=== PATIENT | female | born 1995 | race Caucasian/White ===

== ENCOUNTER 2018-08-05 09:23 | Emergency (ER) | payer MEDICAID ==
[~2018-08-05] VITALS: Ht 154.9 cm; Wt 79.0 kg
[2018-08-05 09:27] VITALS: BP 139/95
--- NOTE | 2018-08-05 09:33 | NUR ---
PT AMB TO RESTROOM FOR URINE SAMPLE
--- NOTE | 2018-08-05 09:35 | NUR ---
PATIENT AMBULATED TO BED 8 AT THIS TIME.
--- NOTE | 2018-08-05 09:36 | NUR ---
22 Y FEMALE BIB SELF C/O ABD PAIN X1 DAY. REPORTS INTERMITENT LOWER ABD CRAMPING PAIN AT 5/10. +N/V WITH 3 EPISODES OF CLEAR YELLOW EMESIS. PT REPORTS CHILLS, CURRENTLY AFEBRILE AT 97.0. PT DENEIS UTI SYMPTOMS. PT REPORTS DIARRHEA THIS MORNING. BOWEL SOUNDS ACTIVE IN ALL FOUR QUADRANTS. ABDOMEN SOFT AND ROUND. VSS AT THIS TIME. PT ALERT AND ORIENTED X 4. BED IS DOWN, LOCKED, BED RAIL X 1, ERMD TO SEE PT. MEDHX:DENIES RX:DENIES
--- NOTE | 2018-08-05 09:37 | NUR ---
DR MARSHALL AT BEDSIDE EVALUATING PT
[2018-08-05] MEDS ORDERED: DICYCLOMINE 20 MG/2 ML VIAL IM ONE (09:40)
--- NOTE | 2018-08-05 09:48 | NUR ---
LAB AT BEDSIDE
[2018-08-05 10:07] LABS: BASOPHILS % (AUTO) 0.7 % (0.0-2.0); EOSINOPHILS % (AUTO) 0.6 % (0.0-4.0); HEMATOCRIT 32.4 % (36-48); HEMOGLOBIN 10.4 g/dL (12.0-16.0); LYMPHOCYTES # (AUTO) 0.9 K/uL (2.5-16.5); LYMPHOCYTES % (AUTO) 15.6 % (20.5-51.1); MEAN CORPUSCULAR HEMOGLOBIN 24 pg (27-31); MEAN CORPUSCULAR HGB CONC 32 g/dL (33-37); MEAN CORPUSCULAR VOLUME 73.5 fL (80-94); MONOCYTES # (AUTO) 0.7 K/uL (0.8-1.0); MONOCYTES % (AUTO) 12.6 % (1.7-9.3); NEUTROPHILS # (AUTO) 4.1 K/uL (1.8-7.7); NEUTROPHILS % (AUTO) 70.5 % (42.2-75.2); PLATELET COUNT (AUTO) 276 K/uL (140-450); RED CELL DISTRIBUTION WIDTH 16.9 % (11.6-13.7); WHITE BLOOD COUNT (AUTO) 5.8 K/uL (4.5-11.0)
--- NOTE | 2018-08-05 10:09 | NUR ---
FAMILY AT BEDSIDE
[2018-08-05 10:14] LABS: APPEARANCE,URINE CLEAR (CLEAR); BILIRUBIN,URINE NEGATIVE (NEGATIVE); BLOOD, URINE 1+ (NEGATIVE); COLOR,URINE YELLOW (YELLOW); LEUKOCYTE ESTERASE ,URINE NEGATIVE (NEGATIVE); NITRITE, URINE NEGATIVE (NEGATIVE); UGLUCOSE NEGATIVE (NEGATIVE)
[2018-08-05 10:45] LABS: WBC,URINE 0-5 /HPF (0-5)
--- NOTE | 2018-08-05 11:04 | NUR ---
pain 4/10 at this time
--- NOTE | 2018-08-05 11:05 | NUR ---
vss at this time. pt alert and oriented x4.
[2018-08-05 11:06] LABS: CARBON DIOXIDE 25.5 mmol/L (21-32); CREATININE 0.8 mg/dL (0.6-1.3)
[2018-08-05 11:07] LABS: ALBUMIN 3.4 g/dL (3.4-5.0); TOTAL BILIRUBIN 0.5 mg/dL (0.0-1.0)
[2018-08-05] MEDS ORDERED: KETOROLAC 30 MG/ML VIAL IM ONE (11:45)
--- NOTE | 2018-08-05 11:45 | NUR ---
DR MARSHALL RE-EVALUATING PT
[2018-08-05 11:52] LABS: ANION GAP 14.1 (8-16); POTASSIUM 3.6 mmol/L (3.5-5.1)
--- NOTE | 2018-08-05 12:07 | NUR ---
PT BEING TAKEN TO CT
--- NOTE | 2018-08-05 12:18 | NUR ---
PT RETURNED FROM CT
[2018-08-05 13:16] VITALS: BP 120/71
--- NOTE | 2018-08-05 13:16 | NUR ---
Patient discharged with v/s stable. Written and verbal after care instructions given and explained. Patient alert, oriented and verbalized understanding of instructions. Ambulatory with steady gait. All questions addressed prior to discharge. ID band removed. Patient advised to follow up with PMD. Rx of NORCO, BENTYL, FLAGYL, CIPROFLOXACIN given. Patient educated on indication of medication including possible reaction and side effects. Opportunity to ask questions provided and answered. PT GIVEN COPY OF LAB AND CT RESULTS.
== END 2018-08-05 13:16 | disposition home or self-care (01) ==
LOC: MED 09:23
DX: K52.9 Noninfective gastroenteritis and colitis, unspecified (principal)
CPT/HCPCS: 36415; 74176; 80053; 81001; 81025; 83690; 85025; 87086; 96372; 99284; J0500; J1885

== ENCOUNTER 2019-01-06 06:52 | Emergency (ER) | payer MEDICAID ==
[~2019-01-06] VITALS: Ht 154.9 cm; Wt 79.4 kg
[2019-01-06 06:54] VITALS: BP 173/91
--- NOTE | 2019-01-06 07:01 | NUR ---
PT TAKEN TO BED 9
--- NOTE | 2019-01-06 07:02 | NUR ---
Dr. Rollins examining patient.
[2019-01-06] MEDS ORDERED: ONDANSETRON 4 MG ODT PO ONE (07:10)
[2019-01-06] MEDS ORDERED: KETOROLAC 30 MG/ML VIAL IM ONE (07:10)
--- NOTE | 2019-01-06 07:12 | NUR ---
23 YO F BIB SELF PT C/O CRAMPING, SHARP LOWER ABD PAIN X1 DAY. N/V/D. VOMITED X2, DIARRHEA X4. VSS -- PT AWAKE, A/O X 4. CALM, COOPERATIVE. BEHAVIOR AGE APPROPRIATE. ANSWERS QUESTIONS IN CLEAR, FULL SENTENCES. -- SKIN PINK, WARM, DRY. BREATHING EVEN, UNLABORED. -- ABD SOFT, FLAT, NON TENDER. BOWEL SOUNDS + 4. MEDHX: DENIES
--- NOTE | 2019-01-06 07:15 | NUR ---
REPORT GIVEN TO CRISTINE SOLORIO. TRANSFER OF CARE AT THIS TIME.
--- NOTE | 2019-01-06 07:16 | NUR ---
PT RESTING IN BED, VSS, PAIN TO LOWER ABDOMEN 8/10, POSITION FOR COMFORT, WILL CONTINUE TO MONITOR.
[2019-01-06] MEDS ORDERED: ACETAMINOPHEN EXTRA STRENGTH 500 MG TAB PO ONE (07:50)
[2019-01-06 07:58] VITALS: BP 139/87
--- NOTE | 2019-01-06 07:58 | NUR ---
Patient discharged with v/s stable. Written and verbal after care instructions given and explained. Patient alert, oriented and verbalized understanding of instructions. Ambulatory with steady gait. All questions addressed prior to discharge. ID band removed. Patient advised to follow up with PMD. Rx of ZOFRAN, TYLENOL given. Patient educated on indication of medication including possible reaction and side effects. Opportunity to ask questions provided and answered.
== END 2019-01-06 07:58 | disposition home or self-care (01) ==
LOC: MED 06:52
DX: R10.13 Epigastric pain (principal); R11.2 Nausea with vomiting, unspecified; R19.7 Diarrhea, unspecified
CPT/HCPCS: 81002; 81025; 96372; 99283; J1885; Q0162

== ENCOUNTER 2019-03-06 21:24 | Emergency (ER) | payer OTHER, MEDICAID ==
[~2019-03-06] VITALS: Ht 154.9 cm; Wt 77.1 kg
[2019-03-06 21:39] VITALS: BP 129/85
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
--- NOTE | 2019-03-06 21:40 | NUR ---
PT TAKEN TO BED 1
--- NOTE | 2019-03-06 22:11 | NUR ---
PT MOVED TO BED 4 Addendum: 03/06/19 at 2223 by DIANNAO PT MOVED TO BED 3
--- NOTE | 2019-03-06 22:11 | NUR ---
Shashi lua in [facility] - 03/06/19 at 2211 by ANDERSON PT MOVED TO BED 1
--- NOTE | 2019-03-06 22:24 | NUR ---
Dr. Albrecht examining patient.
[2019-03-06] MEDS ORDERED: ACETAMINOPHEN EXTRA STRENGTH 500 MG TAB PO ONE (22:35)
[2019-03-06] MEDS ORDERED: BACITRACIN OINT 500 UNITS/GM PKT TP ONE (22:35)
--- NOTE | 2019-03-06 23:04 | NUR ---
PT TAKEN TO CT
--- NOTE | 2019-03-06 23:12 | NUR ---
PT RETURN FROM CT
--- NOTE | 2019-03-06 23:20 | NUR ---
PATIENT IS SITTING QUIETLY IN BED. MOTHER IN [employer] AT BEDSIDE. WILL CONTINUE TO MONITOR.
--- NOTE | 2019-03-07 01:07 | NUR ---
PATIENT IS SITTING IN BED QUIETLY. WILL CONTINUE TO MONITOR.
[2019-03-07 01:27] VITALS: BP 112/78
--- NOTE | 2019-03-07 01:27 | NUR ---
Patient discharged with v/s stable. Written and verbal after care instructions given and explained. Patient verbalized understanding. Ambulatory with steady gait. All questions addressed prior to discharge. Advised to follow up with PMD.
== END 2019-03-07 01:27 | disposition home or self-care (01) ==
LOC: MED 21:24
DX: S00.81XA Abrasion of other part of head, initial encounter (principal); V47.5XXA Car driver injured in collision with fixed or stationary object in traffic accident, initial encounter; Y93.89 Activity, other specified; Y92.89 Other specified places as the place of occurrence of the external cause; Y99.8 Other external cause status
CPT/HCPCS: 70450; 99284

== ENCOUNTER 2021-01-10 10:08 | Emergency (ER) | payer MEDICAID, OTHER ==
[~2021-01-10] VITALS: Ht 154.9 cm; Wt 83.0 kg
--- NOTE | 2021-01-10 10:18 | NUR ---
Patient ambulated with steady gait to bed 4.
[2021-01-10 10:27] VITALS: BP 154/109
--- NOTE | 2021-01-10 10:37 | NUR ---
25 Y/O F BIB SELF FROM HOME, C/O VAGINAL BLEEDING THIS MORNING WITH PELVIC CRAMPING. PT STATES PELVIC PAIN IS 4/10, ACHING. NO CARE AT THIS TIME. BRIGHT RED BLEEDING WITH BROWN DISCHARGE. PT DENIES ANY TRAUMA, SOB, COUGH, CP, FEVERS OR N/V/D AT THIS TIME. 2G 1T 0P 0A 1L PMH: PREECLAMPSIA, HTN NKA MED: DENIES
--- NOTE | 2021-01-10 10:55 | NUR ---
lab at bedside
--- NOTE | 2021-01-10 11:01 | NUR ---
DR CHEATHAM AT BEDSIDE EXAMINING PT
[2021-01-10 11:13] LABS: BASOPHILS % (AUTO) 0.6 % (0.0-2.0); EOSINOPHILS # (AUTO) 0.1 K/uL (0-0.4); EOSINOPHILS % (AUTO) 0.7 % (0.0-4.0); HEMATOCRIT 37.9 % (36-48); HEMOGLOBIN 12.8 g/dL (12.0-16.0); MEAN CORPUSCULAR HEMOGLOBIN 28 pg (27-31); MEAN CORPUSCULAR HGB CONC 34 g/dL (33-37); MEAN CORPUSCULAR VOLUME 83.9 fL (80-94); MONOCYTES # (AUTO) 0.7 K/uL (0.8-1.0); MONOCYTES % (AUTO) 8.4 % (1.7-9.3); NEUTROPHILS # (AUTO) 5.2 K/uL (1.8-7.7); NEUTROPHILS % (AUTO) 65.3 % (42.2-75.2); PLATELET COUNT (AUTO) 314 K/uL (140-450); RED BLOOD CELL COUNT(AUTO) 4.52 MIL/uL (4.20-5.40); RED CELL DISTRIBUTION WIDTH 14.4 % (11.6-13.7)
[2021-01-10 11:15] LABS: BILIRUBIN,URINE NEGATIVE (NEGATIVE); BLOOD, URINE 3+ (NEGATIVE); LEUKOCYTE ESTERASE ,URINE NEGATIVE (NEGATIVE); NITRITE, URINE NEGATIVE (NEGATIVE); UGLUCOSE NEGATIVE (NEGATIVE)
[2021-01-10 11:24] LABS: APPEARANCE,URINE BLOODY (CLEAR)
[2021-01-10 11:25] LABS: COLOR,URINE RED (YELLOW)
[2021-01-10 11:26] LABS: RBC,URINE 20-50 /HPF (0-5); WBC,URINE 0-5 /HPF (0-5)
[2021-01-10 11:27] LABS: URINE AMORPHOUS URATE 1+ /HPF (None Seen)
[2021-01-10 11:31] LABS: ALBUMIN 4.1 g/dL (3.4-5.0); ANION GAP 11.4 (8-16); CARBON DIOXIDE 27.3 mmol/L (21-32); CREATININE 0.6 mg/dL (0.6-1.3); POTASSIUM 3.7 mmol/L (3.5-5.1); TOTAL BILIRUBIN 0.7 mg/dL (0.0-1.0)
[2021-01-10 11:58] VITALS: BP 154/109
--- NOTE | 2021-01-10 11:58 | NUR ---
Patient discharged with v/s stable. Written and verbal after care instructions given and explained. Patient alert, oriented and verbalized understanding of instructions. Ambulatory with steady gait. All questions addressed prior to discharge. ID band removed. Patient advised to follow up with PMD. Opportunity to ask questions provided and answered.
== END 2021-01-10 11:58 | disposition home or self-care (01) ==
LOC: MED 10:08
DX: N93.9 Abnormal uterine and vaginal bleeding, unspecified (principal); I10 Essential (primary) hypertension
CPT/HCPCS: 36415; 80053; 81001; 81025; 84702; 85025; 99283